=== PATIENT | female | born 1940 | race Caucasian/White ===

== ENCOUNTER 2017-01-08 13:57 | Emergency (ER) | payer OTHER ==
[~2017-01-08] VITALS: Ht 157.5 cm; Wt 68.9 kg
[2017-01-08 14:09] VITALS: BP 200/89
[2017-01-08] MEDS ORDERED: ACETAMINOPHEN 650 MG/20.3 ML UDC PO ONE (16:15)
[2017-01-08 18:09] VITALS: BP 162/86
[2017-01-08] MEDS ORDERED: NEOMYCIN/POLYMYXIN/BACITRACIN 0.9 GM/1 PKT TP ONE (18:14)
== END 2017-01-08 18:10 | disposition home or self-care (01) ==
LOC: MED 13:57
DX: S00.03XA Contusion of scalp, initial encounter (principal); S80.811A Abrasion, right lower leg, initial encounter; W18.2XXA Fall in (into) shower or empty bathtub, initial encounter; Y93.89 Activity, other specified; Y92.89 Other specified places as the place of occurrence of the external cause; Y99.8 Other external cause status
CPT/HCPCS: 70450; 72125; 99284